=== PATIENT | female | born 1985 | race Caucasian/White ===

== ENCOUNTER 2016-07-08 17:59 | Outpatient (CLI) | payer OTHER ==
[~2016-07-08] VITALS: Ht 167.6 cm; Wt 114.0 kg
[~2016-07-08 17:59] MED LIST: CEPH500C PO; HYDR-3498 PO
[2016-07-08 18:19] VITALS: Ht 167.6 cm; Wt 114.0 kg
[2016-07-08 18:21] VITALS: BP 117/56; PULSE 100; RESP 20
[2016-07-08 19:08] LABS: ADD UMIC YES; URINE BILIRUBIN (Dip) NEGATIVE (NEGATIVE); URINE BLOOD (Dip) NEGATIVE (NEGATIVE); URINE GLUCOSE (Dip) NEGATIVE (NEGATIVE); URINE KETONES (Dip) TRACE (NEGATIVE); URINE LEUKOCYTE ESTERASE (Dip) NEGATIVE (NEGATIVE); URINE NITRITE (Dip) NEGATIVE (NEGATIVE); URINE TOTAL PROTEIN (Dip) NEGATIVE (NEGATIVE); URINE UROBILINOGEN (Dip) 0.2 E.U./dL (0.1-1.0)
[2016-07-08 19:16] LABS: BACTERIA,URINE FEW; SQUAMOUS EPITHELIAL CELL,UR MODERATE; URINE COLOR YELLOW (YELLOW)
[2016-07-08 19:17] LABS: URINE RBCS NONE SEEN /HPF (0)
--- NOTE | 2016-07-08 20:04 | RADRPT ---
PROCEDURE: US OB. CLINICAL INDICATION: . TECHNIQUE: Multiple sonographic images of the pelvis were obtained. The images were reviewed on a PACS workstation. COMPARISON: No prior studies are available for comparison. FINDINGS: The cervix is closed with a length of 3.7 cm. Technically difficult to see internal os, possibly sec ondary to shadowing from breech presentation. There is a single viable intrauterine gestation. Cardiac activity is present with 156 beats per min haider. There is a breech presentation. Estimated gestational age by last menstrual period is 26-weeks and 1 day. The placenta is posterior grade 1. There is no evidence for an abruption or placenta previa. There are no adnexal masses.. IMPRESSION: Cervix is closed with a length of 3.7 cm. RPTAT: UU Physician Vivian Date Time Electronically viewed and signed by Physician Vivian on 07/08/2016 20:03 RS/
[2016-07-08] MEDS ORDERED: TERBUTALINE 1 MG/ML INJ SC ONE (21:15)
--- NOTE | 2016-07-08 21:24 | QN ---
Documentation Comment Laborist 30 y.o. with an IUP at 26 weeks 1 day c/o back pain since yesterday. She says it used to be continuous but now it comes and goes.No VB. No leaking. PMHx: none. PSHx: C/S x 2 at term. NKDA. BP 117.56 T= 98.6. US: cx long closed and 3.7 cm long. No previa. U/A neg. NST: US's variable from q 3 to q 15 minutes and as the pthas a high BMI good contact is lost on occasion. heart tones are reactive and w/o decels. A: IUP at 26 weeks 1 day. UC's. False labor. P: Terbutaline 0.2 SQ x 1. Repeat in 20 min prn. P.O hydration. May D/C home if UC's desi. ERNIE MEREDITH MD Jul 08, 2016 21:24
== END 2016-07-08 23:20 | disposition home or self-care (01) ==
LOC: OBT 17:59 → L-D 18:00 → OBT 21:04
PROVIDERS: ATTEND Obstetrics & Gynecology
DX: O47.02 False labor before 37 completed weeks of gestation, second trimester (principal); Z3A.26 26 weeks gestation of pregnancy
CPT/HCPCS: 76817; 81001; 87086; 96372; J3105; Z7500; 81003; G0463

== ENCOUNTER 2016-08-20 18:48 | Outpatient (CLI) | payer OTHER ==
[~2016-08-20] VITALS: Ht 160 cm; Wt 113.9 kg
[2016-08-20 19:21] VITALS: Ht 160 cm; Wt 113.9 kg
[2016-08-20 19:55] LABS: ADD SCAN DIFF NO
[2016-08-20 19:57] LABS: ADD UMIC YES; URINE BILIRUBIN (Dip) NEGATIVE (NEGATIVE); URINE BLOOD (Dip) NEGATIVE (NEGATIVE); URINE COLOR LT. YELLOW (YELLOW); URINE GLUCOSE (Dip) NEGATIVE (NEGATIVE); URINE KETONES (Dip) NEGATIVE (NEGATIVE); URINE LEUKOCYTE ESTERASE (Dip) TRACE (NEGATIVE); URINE NITRITE (Dip) NEGATIVE (NEGATIVE); URINE TOTAL PROTEIN (Dip) NEGATIVE (NEGATIVE); URINE UROBILINOGEN (Dip) 1.0 E.U./dL (0.1-1.0)
[2016-08-20 20:04] LABS: BASOPHILS % 0.2 % (0.0-2.0); EOSINOPHILS # 0.1 10^3/ul (0.0-0.5); EOSINOPHILS % 0.5 % (0.0-7.0); HEMATOCRIT 33.7 % (37.0-47.0); LYMPHOCYTES # 3.3 10^3/ul (0.8-2.9); LYMPHOCYTES % 25.6 % (15.0-51.0); MEAN CORPUSCULAR HEMOGLOBIN 28.1 pg (29.0-33.0); MEAN CORPUSCULAR HGB CONC 32.6 g/dl (32.0-37.0); MEAN PLATELET VOLUME 10.4 fl (7.4-10.4); MONOCYTE # 0.6 10^3/ul (0.3-0.9); NEUTROPHIL # 8.7 10^3/ul (1.6-7.5); NEUTROPHILS % 68.2 % (39.0-77.0); PLATELET COUNT 337 10^3/UL (140-415); RED BLOOD COUNT 3.92 10^6/ul (4.20-5.40); RED CELL DISTRIBUTION WIDTH 13.2 % (11.5-14.5); WHITE BLOOD COUNT 12.8 10^3/ul (4.8-10.8)
[2016-08-20 20:23] LABS: BACTERIA,URINE FEW; SQUAMOUS EPITHELIAL CELL,UR FEW; URINE RBCS NONE SEEN /HPF (0)
[2016-08-20] MEDS ORDERED: LACTATED RINGER'S 1,000 ML IV ONE (23:00)
[2016-08-20] MEDS ORDERED: TERBUTALINE 1 MG/ML INJ SC ONE (23:00)
[2016-08-21] MEDS ORDERED: TERBUTALINE 1 MG/ML INJ SC ONE (01:00)
--- NOTE | 2016-08-21 02:55 | QN ---
Documentation Comment Laborist Dr Rodríguez's pt 31 y.o. A1 with an IUP at 32w 3d came in complaining of lower back pain since 08/19. No vaginal bleeding and no leaking. movement normal. PMHx: none. PSHx: x 2. D and C x1. NKDA. T=98.7 BP 118/60 NST: baseline 140-150 bpm with accels to 170 bpm. No decels. UC's initially q 2- 3 minutes once they were picked up. U/A negative. WBC 12.8. Hgb 11.0 Pt was given IV hydration and 2 doses of terbutaline and the UC's abated. A: IUP at 32w 3d. False labor. P: D/C IV and D/C home. F/U as scheduled with her doctor 08/22. ERNIE MEREDITH MD Aug 21, 2016 02:55
--- NOTE | 2016-08-21 03:03 | TRIAGE ---
OB Triage Datetime Report Generated by CPN: 08/21/2016 03:03 Datetime: 08/21/2016 02:00 Labor Evaluation Frequency: 0 Monitor Mode: External Duration (sec)2399: 0 Pattern: Normal: <= 5 Contractions in 10 Minutes Resting Tone [place]: Relaxed Contraction Comments: pt. denies feeling UC's. Heart Rate FHR Baseline Rate: 140 Monitor Mode: External US Variability: Moderate 6-25 bpm Accelerations: 15X15 Decelerations: None Category: Category I Datetime: 08/21/2016 01:00 Monitor Mode: External US Variability: Moderate 6-25 bpm Accelerations: 15X15 Decelerations: None Category: Category I Datetime: 08/21/2016 00:00 Stage of : OB Triage Labor Evaluation Frequency: 0 Monitor Mode: External Duration (sec)2399: 0 Pattern: Normal: <= 5 Contractions in 10 Minutes Resting Tone [place]: Relaxed Contraction Comments: uterine irritiability noted. Heart Rate FHR Baseline Rate: 145 Monitor Mode: External US Variability: Moderate 6-25 bpm Decelerations: None Category: Category I Datetime: 08/20/2016 23:00 Stage of : OB Triage Labor Evaluation Frequency: 2-6 Monitor Mode: External Duration (sec)2399: 50-70 Quality: Mild Pattern: Normal: <= 5 Contractions in 10 Minutes Resting Tone [place]: Relaxed Heart Rate FHR Baseline Rate: 140 Monitor Mode: External US Variability: Moderate 6-25 bpm Accelerations: 15X15 Decelerations: None Category: Category I Pain Assessment Pain Scale: 2 Pain Presence: Intermittent Pain Type: Ache Pain Location: Back Pain Goal: 0 Pain Relief Measures: Comfort Measures Datetime: 08/20/2016 22:00 Stage of : OB Triage Labor Evaluation Frequency: irregular Monitor Mode: External Duration (sec)2399: 50-80 Quality: Mild Pattern: Normal: <= 5 Contractions in 10 Minutes Resting Tone [place]: Relaxed Heart Rate FHR Baseline Rate: 150 Monitor Mode: External US Variability: Moderate 6-25 bpm Accelerations: 15X15 Decelerations: None Category: Category I Datetime: 08/20/2016 21:17 Stage of : OB Triage Datetime: 08/20/2016 21:02 Heart Rate FHR Baseline Rate: 140 Monitor Mode: External US Variability: Moderate 6-25 bpm Decelerations: Variable Category: Category II Comments: variable decel starting at 2101 lasting 90 seconds with a curt to 100bpm with areturn to baseline at 140bpm. Datetime: 08/20/2016 21:00 Stage of : OB Triage Labor Evaluation Frequency: x1 Monitor Mode: External Duration (sec)2399: 40 Quality: Mild Pattern: Normal: <= 5 Contractions in 10 Minutes Resting Tone [place]: Relaxed Heart Rate FHR Baseline Rate: 140 Monitor Mode: External US Variability: Moderate 6-25 bpm Accelerations: 15X15 Decelerations: None Category: Category I Datetime: 08/20/2016 20:00 Stage of : OB Triage Labor Evaluation Frequency: x1 Monitor Mode: External Duration (sec)2399: 40 Quality: Mild Pattern: Normal: <= 5 Contractions in 10 Minutes Resting Tone [place]: Relaxed Heart Rate FHR Baseline Rate: 135 Monitor Mode: External US Variability: Moderate 6-25 bpm Accelerations: 15X15 Decelerations: None Category: Category I Datetime: 08/20/2016 19:56 Assessment Type: Triage Datetime: 08/20/2016 19:10 Assessment Type: Admission Assessment Maternal Assessment Level of Consciousness: Fully Conscious DTR's/Clonus: DTRs 2+; No Clonus Headache: Denies Blurred Vision: No Respiratory Effort: Unlabored; Regular Rhythm; Equal Expansion Breath Sounds, Left: Clear and Equal Breath Sounds, Right: Clear and Equal Nausea/Vomiting: Denies RUQ Epigastric Pain: Denies Facial Edema: None Fall Risk Assessment History of Falling: (0) No Secondary Diagnosis: (0) No Ambulatory Aid: (0) Bedrest/Nurse Assist IV Therapy: (0) No Gait: (0) Normal/Bedrest/Immobile Mental Status: (0) Oriented to Own Ability Fall Score: 0 Fall Risk Score Definition: No Risk: No action required Datetime: 08/20/2016 18:53 Headache: Denies Datetime: 08/20/2016 18:51 Time of Arrival: 08/20/2016 18:25 EGA: 32.2 Arrived From: Home Movement: Present Contractions: Denies/Absent Rupture of Membranes: Denies Vaginal Discharge: Denies Recent Sexual Intercouse: Denies Abdominal Trauma: Not Applicable Datetime: 07/08/2016 23:05 Stage of : OB Triage Labor Evaluation Frequency: X4 Monitor Mode: External Duration (sec)2399: 50-60 Quality: Mild Pattern: Normal: <= 5 Contractions in 10 Minutes Resting Tone [place]: Relaxed Heart Rate FHR Baseline Rate: 150 Monitor Mode: External US FHR Baseline Changes: No Baseline Change Variability: Moderate 6-25 bpm Accelerations: 15X15 Decelerations: None Category: Category I Pain Assessment Pain Scale: 2 Pain Presence: Intermittent Pain Type: Cramping Pain Location: Abdomen; Back Pain Goal: 6 Pain Relief Measures: Comfort Measures Datetime: 07/08/2016 22:00 Stage of : OB Triage Labor Evaluation Frequency: IRREG Monitor Mode: External Duration (sec)2399: 50-60 Quality: Mild Pattern: Normal: <= 5 Contractions in 10 Minutes Resting Tone [place]: Relaxed Heart Rate FHR Baseline Rate: 150 Monitor Mode: External US FHR Baseline Changes: No Baseline Change Variability: Moderate 6-25 bpm Accelerations: 15X15 Decelerations: None Category: Category I Pain Assessment Pain Scale: 4 Pain Presence: Intermittent Pain Type: Cramping Pain Location: Abdomen; Back Pain Goal: 6 Pain Relief Measures: Comfort Measures Datetime: 07/08/2016 21:00 Stage of : OB Triage Labor Evaluation Frequency: IRREG Monitor Mode: External Duration (sec)2399: 50-60 Quality: Mild Pattern: Normal: <= 5 Contractions in 10 Minutes Resting Tone [place]: Relaxed Heart Rate FHR Baseline Rate: 150 Monitor Mode: External US FHR Baseline Changes: No Baseline Change Variability: Moderate 6-25 bpm Accelerations: 15X15 Decelerations: None Category: Category I Pain Assessment Pain Scale: 6 Pain Presence: Intermittent Pain Type: Cramping Pain Location: Abdomen; Back Pain Goal: 6 Pain Relief Measures: Comfort Measures Datetime: 07/08/2016 19:55 Stage of : OB Triage Labor Evaluation Frequency: IRREG Monitor Mode: External Duration (sec)2399: 50-60 Quality: Mild Pattern: Normal: <= 5 Contractions in 10 Minutes Resting Tone [place]: Relaxed Heart Rate FHR Baseline Rate: 150 Monitor Mode: External US FHR Baseline Changes: No Baseline Change Variability: Moderate 6-25 bpm Accelerations: 15X15 Decelerations: None Category: Category I Pain Assessment Pain Scale: 6 Pain Presence: Intermittent Pain Type: Cramping Pain Location: Abdomen; Back Pain Goal: 6 Pain Relief Measures: Comfort Measures Datetime: 07/08/2016 18:53 Labor Evaluation Frequency: IRREG Monitor Mode: External Duration (sec)2399: 50-60 Quality: Mild Pattern: Normal: <= 5 Contractions in 10 Minutes Resting Tone [place]: Relaxed Heart Rate FHR Baseline Rate: 150 Monitor Mode: External US FHR Baseline Changes: No Baseline Change Variability: Moderate 6-25 bpm Accelerations: 15X15 Decelerations: None Category: Category I Pain Assessment Pain Scale: 6 Pain Presence: Intermittent Pain Type: Cramping Pain Location: Abdomen; Back Pain Goal: 6 Datetime: 07/08/2016 18:07 Time of Arrival: 07/08/2016 17:54 EGA: 26.1 Arrived By: Ambulatory Arrived From: Home Chief Complaint: LOWER BACK PAIN SINCE 07/07/16 Movement: Present Contractions: Denies/Absent Vaginal Bleeding: None Patient Complaints: Back Pain Time Provider Notified: 07/08/2016 18:36 Provider Notified: TIM Initial Plan: EFM,CALL DR DUMONT Datetime: 07/08/2016 18:06 Maternal Assessment Level of Consciousness: Fully Conscious DTR's/Clonus: DTRs 2+; No Clonus Headache: Denies Blurred Vision: No Respiratory Effort: Unlabored; Regular Rhythm; Equal Expansion Breath Sounds, Left: Clear and Equal Breath Sounds, Right: Clear and Equal Nausea/Vomiting: Denies RUQ Epigastric Pain: Denies Facial Edema: None Temperature Route: Axillary Fall Risk Assessment History of Falling: (0) No Secondary Diagnosis: (0) No Ambulatory Aid: (0) Bedrest/Nurse Assist IV Therapy: (0) No Gait: (0) Normal/Bedrest/Immobile Mental Status: (0) Oriented to Own Ability Fall Score: 0 Fall Risk Score Definition: No Risk: No action required Datetime: 07/08/2016 18:03 Maternal Assessment Level of Consciousness: Fully Conscious DTR's/Clonus: DTRs 2+ Headache: Denies Blurred Vision: No Nausea/Vomiting: Denies RUQ Epigastric Pain: Denies Facial Edema: None Labor Evaluation Frequency: IRREG Monitor Mode: External Duration (sec)2399: 50 Quality: Mild Pattern: Normal: <= 5 Contractions in 10 Minutes Resting Tone [place]: Relaxed Heart Rate FHR Baseline Rate: 155 Monitor Mode: External US FHR Baseline Changes: No Baseline Change Variability: Minimal - Undetectable to <=5 bpm Decelerations: None Category: Category I Pain Assessment Pain Scale: 7 Pain Presence: Constant Pain Type: Pressure Pain Location: Back Pain Goal: 4 Vaginal Exam Membrane Status: Intact
[2016-08-21 03:05] VITALS: BP 118/60; PULSE 106
== END 2016-08-21 02:35 | disposition home or self-care (01) ==
LOC: OBT 18:48 → L-D 18:49 → OBT 08-21 02:35
PROVIDERS: ATTEND Obstetrics & Gynecology
DX: O47.03 False labor before 37 completed weeks of gestation, third trimester (principal); Z3A.32 32 weeks gestation of pregnancy
CPT/HCPCS: 36415; 81001; 85025; 87086; 96372; J3105; J7120; Z7500; 81003; G0463

== ENCOUNTER 2016-10-02 19:21 | Inpatient (IN) | payer OTHER ==
[~2016-10-02] VITALS: Ht 165.1 cm; Wt 116.9 kg
[2016-10-02 20:54] VITALS: BP 116/81; PULSE 100; RESP 18; Ht 165.1 cm; Wt 116.9 kg
[2016-10-02] MEDS ORDERED: LACTATED RINGER'S 1,000 ML IV ONE (21:00)
[2016-10-02] MEDS ORDERED: LACTATED RINGER'S 1,000 ML IV SCH (21:00)
--- NOTE | 2016-10-02 21:24 | RADRPT ---
PROCEDURE: OB ultrasound for biophysical profile CLINICAL INDICATION: Biophysical profile. . TECHNIQUE: Multiple sonographic images of the pelvis were obtained. Transabdominal view of the gr avid uterus are available for review. COMPARISON: 07/08/2016 FINDINGS: Single intrauterine gestation. Presentation: Cephalic. breathing movement = 2/2 tone = 2/2 motion = 2/2 RACHNA = 2/2 RACHNA = 14.6 cm heart rate: 144 beats per minute IMPRESSION: Single intrauterine gestation. Biophysical profile 01/23 RPTAT: AADD .Jarrett Donald MD, MD Date Time Electronically viewed and signed by .Jarrett Donald MD, on 10/02/2016 21:23 .B/
[2016-10-02 22:55] LABS: ADD SCAN DIFF NO
[2016-10-02 22:58] LABS: BASOPHILS % 0.1 % (0.0-2.0); EOSINOPHILS % 0.1 % (0.0-7.0); HEMATOCRIT 34.7 % (37.0-47.0); HEMOGLOBIN 11.4 g/dl (12.0-16.0); LYMPHOCYTES # 2.3 10^3/ul (0.8-2.9); LYMPHOCYTES % 16.6 % (15.0-51.0); MEAN CORPUSCULAR HEMOGLOBIN 27.9 pg (29.0-33.0); MEAN CORPUSCULAR HGB CONC 32.9 g/dl (32.0-37.0); MEAN CORPUSCULAR VOLUME 84.8 fl (82.0-101.0); MONOCYTE # 0.5 10^3/ul (0.3-0.9); MONOCYTES % 3.4 % (0.0-11.0); NEUTROPHIL # 11.2 10^3/ul (1.6-7.5); NEUTROPHILS % 79.4 % (39.0-77.0); PLATELET COUNT 268 10^3/UL (140-415); RED BLOOD COUNT 4.09 10^6/ul (4.20-5.40); RED CELL DISTRIBUTION WIDTH 14.1 % (11.5-14.5)
[2016-10-03] MEDS ORDERED: CEFAZOLIN 2 GM/50 ML (PMX) 50 ML IVPB ONE (00:29)
[2016-10-03] MEDS ORDERED: CARBOPROST 250 MCG INJ IM PRN ×2 (00:30→06:30)
[2016-10-03] MEDS ORDERED: MISOPROSTOL 200 MCG TAB PR PRN ×2 (00:30→06:30)
[2016-10-03] MEDS ORDERED: METHYLERGONOVINE 0.2 MG INJ IM PRN ×2 (00:30→06:30)
[2016-10-03] MEDS ORDERED: OXYTOCIN 30 UNITS/LR 500 ML IV PRN ×2 (00:30→06:30)
[2016-10-03] MEDS ORDERED: CEFAZOLIN 2 GM/50 ML (PMX) 50 ML IV SCH (00:30)
--- NOTE | 2016-10-03 00:33 | TRIAGE ---
OB Triage Datetime Report Generated by CPN: 10/03/2016 00:32 Datetime: 10/03/2016 00:29 Time of Arrival: 10/03/2016 19:20 EGA: 38.4 Arrived By: Wheelchair Arrived From: Home Chief Complaint: CONTRACTIONS, REPEAT SECTION Movement: Present Contractions: Regular Rupture of Membranes: Denies Vaginal Discharge: Denies Recent Sexual Intercouse: Denies Abdominal Trauma: Not Applicable Patient Complaints: Contractions Time Provider Notified: 10/03/2016 20:47 Provider Notified: TIM Initial Plan: BPP, IV HYDRATION, NPO, SVE Datetime: 10/02/2016 23:23 Monitor Mode: External US Datetime: 10/02/2016 20:45 Monitor Mode: External US Datetime: 10/02/2016 20:41 Vaginal Exam Dilatation (cms): 0.0 Effacement (%): 0 Station: -3 Exam By: CARY Vaginal Bleeding: None Cervix, Consistency: Moderate Cervix, Position: Midposition Presentation 'A': Unable to Assess Datetime: 10/02/2016 19:42 Assessment Type: Triage Maternal Assessment Level of Consciousness: Fully Conscious DTR's/Clonus: DTRs 2+; No Clonus Headache: Denies Blurred Vision: No Respiratory Effort: Unlabored; Regular Rhythm; Equal Expansion Breath Sounds, Left: Clear and Equal Breath Sounds, Right: Clear and Equal Nausea/Vomiting: Denies RUQ Epigastric Pain: Denies Lower Extremities Edema: Bilateral Lower Extremities Degree: 2+ Upper Extremities Edema: None Degree: None Facial Edema: None Fall Risk Assessment History of Falling: (0) No Secondary Diagnosis: (0) No Ambulatory Aid: (0) Bedrest/Nurse Assist IV Therapy: (0) No Gait: (0) Normal/Bedrest/Immobile Mental Status: (0) Oriented to Own Ability Fall Score: 0 Fall Risk Score Definition: No Risk: No action required Datetime: 08/21/2016 02:38 Labor Evaluation Frequency: 0 Monitor Mode: External Duration (sec)2399: 0 Pattern: Normal: <= 5 Contractions in 10 Minutes Resting Tone [place]: Relaxed Heart Rate FHR Baseline Rate: 135 Monitor Mode: External US Variability: Moderate 6-25 bpm Accelerations: 15X15 Decelerations: None Category: Category I Pain Assessment Pain Scale: 0 Pain Presence: None/Denies Pain Type: N/A Pain Goal: 0 Datetime: 08/21/2016 01:59 Vaginal Exam Dilatation (cms): 0.0 Effacement (%): 50 Station: -4 Exam By: CH Datetime: 08/20/2016 19:10 Fall Score: 0 Fall Risk Score Definition: No Risk: No action required Datetime: 08/20/2016 18:51 EGA: 32.2 Datetime: 07/08/2016 18:07 EGA: 26.1 Datetime: 07/08/2016 18:06 Fall Score: 0 Fall Risk Score Definition: No Risk: No action required
[2016-10-03 00:42] LABS: INR 0.98; PARTIAL THROMBOPLASTIN TIME 29.6 Sec (25.0-35.0)
[2016-10-03] MEDS ORDERED: OXYTOCIN 30 UNITS/LR 500 ML IV ONE (01:33)
[2016-10-03] MEDS ORDERED: EPHEDrine SULFATE 50 MG/5 ML SYG ONE (01:33)
[2016-10-03] MEDS ORDERED: OXYTOCIN 10 UNIT INJ ONE (01:33)
[2016-10-03] MEDS ORDERED: METOCLOPRAMIDE 10 MG INJ ONE (01:33)
[2016-10-03] MEDS ORDERED: ONDANSETRON 4 MG INJ ONE (01:33)
[2016-10-03] MEDS ORDERED: morphine SULFATE/PF (10 MG/10 ML) INJ ONE (01:33)
--- NOTE | 2016-10-03 02:45 | DELSUM ---
Delivery Summary A-C Datetime Report Generated by CPN: 10/03/2016 02:45 DELIVERY PERSONNEL Industrial Real Estate Agent: Ravi, Lashell MATERNAL INFORMATION Delivery Anesthesia: Spinal Medications in Delivery: SEE ANESTHESIA RECORDS Placenta Cultured: No Maternal Complications: Other Other Maternal Complications: R C/S X2 LABOR SUMMARY EDC: 10/13/2016 00:00 EDC: 10/13/2016 00:00 No. Babies in Womb: 1 Attempted: No Labor Anesthesia: Intrathecal LABOR INFORMATION Reason for Induction: Not Applicable Oxytocin: N/A Group B Beta Strep: Negative Antibiotics # of Doses: 1 Antibiotics Time of Last Dose: 10/03/2016 01:35 Steroids Given: None Reason Steroids Not Administered: Not Applicable MEMBRANES Membranes Rupture Method: Artificial Rupture of Membranes: 10/03/2016 02:07 Length of Rupture (hr): 0.03 Amniotic Fluid Color: Clear Amniotic Fluid Amount: Small STAGES OF LABOR Stage 3 hr: 0 Stage 3 min: 1 CSECTION DELIVERY Primary Indication: Repeat Elective CSection Urgency: Elective CSection Incidence: Repeat Labor: N/A Elective: N/A CSection Incision: Lower Uterine Transverse Sterilization Procedure: Cristobal BABY A INFORMATION Delivery Date/Time: 10/03/2016 02:09 Method of Delivery: Born in Route : No : N/A Forceps: N/A Vacuum Extraction: N/A Shoulder Dystocia : N/A SHOULDER DYSTOCIA BABY A Infant Delivery Date/Time: 10/03/2016 02:09 PRESENTATION/POSITION BABY A Presentation: Cephalic Cephalic Presentation: Vertex Breech Presentation: N/A PLACENTA INFORMATION BABY A Placenta Delivery Time : 10/03/2016 02:10 Placenta Method of Delivery: Manual Removal Placenta Status: Delivered SCORES BABY A Heart Rate 1 min: >100 bpm Resp Effort 1 min: Good Cry Reflex Irritability 1 min: Cough/Sneeze/Pulls Away Muscle Tone 1 min: Active Motion Color 1 min: Blue/Pale Resuscitation Effort 1 min: Tactile Stimulation SCORE 1 MIN: 8 Heart Rate 5 min: >100 bpm Resp Effort 5 min: Good Cry Reflex Irritability 5 min: Cough/Sneeze/Pulls Away Muscle Tone 5 min: Active Motion Color 5 min: Body [place], Extremit Blue Resuscitation Effort 5 min: Tactile Stimulation SCORE 5 MIN: 9 INFANT INFORMATION BABY A Gestational Age at Delivery: 38.4 Gestational Status: Early Term- 37- 38.6 Weeks Infant Outcome : Liveborn Condition : Stable Infant Sex: Male IDENTIFICATION/MEDS BABY A ID Band Number: [id number] ID Band Location: Right Leg; Left Arm Sensor Applied: Yes Sensor Number: [id number] Sensor Location : Cord Clamp Vitamin K Given : Not Given Erythromycin Given: Not Given WEIGHT/LENGTH BABY A Infant Birthweight (gm): 3420 Weight (lb): 7 Weight (oz): 9 Length (in): 18.50 Length (cm): 46.99 CORD INFORMATION BABY A No. Cord Vessels: 3 Nuchal Cord : Around Neck x1, Loose Cord Blood Taken: Yes Infant Suction: Mouth; Nose ASSESSMENT BABY A Complications: None Physical Findings at Delivery: Within Normal Limits Infant Respirations: Appears Normal [place] Maker/ALS Called : No Infant Care By: AVNI Transferred To: Remains with Mother
--- NOTE | 2016-10-03 03:23 | HP ---
Date/Time of Note Date/Time of Note DATE: 10/03/16 TIME: 03:16 OB - History Hx of Present Free Text/Dictation 31 y.o A1 at 38w3d cmae in c/o decrease movement and sharp pain on lower abdomen had unevenful course with x2 previous section, desire to have tubal sterilization EFM revealed 2-5 min uterine contractions pain 8/10 prepare repeat c/s and tubal sterilization after obtain proper consent. Chief Complaint: pelvic pain and dfm Estimated Due Date: Oct 13, 2016 : 4 Para: 2 Spontaneous : 1 Therapeutic : 0 Care: Good Care Ultrasounds: Normal mid trimester US Obstetrical Complications: None Medical Complications: None Past Family/Social History * Past Medical, Surgical, Family and Obstetric Histories reviewed from chart. Rubella: immune RPR/VDRL: Negative GBS Status: Negative HBsAG: Negative OB Admission Exam Vital Signs Vital Signs Vital Signs Date Time Temp Pulse Resp B/P Pulse Ox O2 Delivery O2 Flow Rate FiO2 10/02/16 20:54 98.1 100 18 116/81 Room Air Physical Exam HEENT: WNL Heart: Rhythm Normal Lungs: Clear, Equal Abdomen: WNL Extremities: Normal Reflexes: Normal Effacement: 0% Station: -3 Membranes: Intact Heart Rate: 140's Accelerations: Accelerations Present Decelerations: No Decelerations Varibility: Moderate Contractions on Admission: < 5 Minutes Apart Intensity: Moderate Last 72 hours Lab Results CBC & BMP 10/02/16 22:00 OB Assessment/Plan Reason for admission: section, other Other Assessment: [id number] with previous 2 c/s multiparity Plan: Section Other plan: repeat c/s and btl JOSEPH DUMONT MD Oct 03, 2016 03:23
[2016-10-03] MEDS ORDERED: OXYTOCIN 30 UNITS/LR 500 ML IV SCH (03:30)
--- NOTE | 2016-10-03 03:38 | DELSUM ---
Delivery Summary A-C Datetime Report Generated by CPN: 10/03/2016 03:37 DELIVERY PERSONNEL Hr Director: Ravi, Lashell MATERNAL INFORMATION Delivery Anesthesia: Spinal Medications in Delivery: SEE ANESTHESIA RECORDS Estimated Blood Loss (ml): 500 Placenta Cultured: No Maternal Complications: Other Other Maternal Complications: R C/S X2 LABOR SUMMARY EDC: 10/13/2016 00:00 EDC: 10/13/2016 00:00 No. Babies in Womb: 1 Attempted: No Labor Anesthesia: Intrathecal LABOR INFORMATION Reason for Induction: Not Applicable Oxytocin: N/A Group B Beta Strep: Negative Antibiotics # of Doses: 1 Antibiotics Time of Last Dose: 10/03/2016 01:35 Steroids Given: None Reason Steroids Not Administered: Not Applicable MEMBRANES Membranes Rupture Method: Artificial Rupture of Membranes: 10/03/2016 02:07 Length of Rupture (hr): 0.03 Amniotic Fluid Color: Clear Amniotic Fluid Amount: Small STAGES OF LABOR Stage 3 hr: 0 Stage 3 min: 1 CSECTION DELIVERY Primary Indication: Repeat Elective CSection Urgency: Elective CSection Incidence: Repeat Labor: N/A Elective: N/A CSection Incision: Lower Uterine Transverse Sterilization Procedure: Cristobal BABY A INFORMATION Infant Delivery Date/Time: 10/03/2016 02:09 Method of Delivery: Born in Route : No : N/A Forceps: N/A Vacuum Extraction: N/A Shoulder Dystocia : N/A SHOULDER DYSTOCIA BABY A Infant Delivery Date/Time: 10/03/2016 02:09 PRESENTATION/POSITION BABY A Presentation: Cephalic Cephalic Presentation: Vertex Breech Presentation: N/A PLACENTA INFORMATION BABY A Placenta Delivery Time : 10/03/2016 02:10 Placenta Method of Delivery: Manual Removal Placenta Status: Delivered SCORES BABY A Heart Rate 1 min: >100 bpm Resp Effort 1 min: Good Cry Reflex Irritability 1 min: Cough/Sneeze/Pulls Away Muscle Tone 1 min: Active Motion Color 1 min: Blue/Pale Resuscitation Effort 1 min: Tactile Stimulation SCORE 1 MIN: 8 Heart Rate 5 min: >100 bpm Resp Effort 5 min: Good Cry Reflex Irritability 5 min: Cough/Sneeze/Pulls Away Muscle Tone 5 min: Active Motion Color 5 min: Body [place], Extremit Blue Resuscitation Effort 5 min: Tactile Stimulation SCORE 5 MIN: 9 INFORMATION BABY A Gestational Age at Delivery: 38.4 Gestational Status: Early Term- 37- 38.6 Weeks Infant Outcome : Liveborn Condition : Stable Infant Sex: Male IDENTIFICATION/MEDS BABY A ID Band Number: [id number] ID Band Location: Right Leg; Left Arm Sensor Applied: Yes Sensor Number: [id number] Sensor Location : Cord Clamp Vitamin K Given : Not Given Erythromycin Given: Not Given WEIGHT/LENGTH BABY A Birthweight (gm): 3420 Infant Weight (lb): 7 Weight (oz): 9 Infant Length (in): 18.50 Infant Length (cm): 46.99 CORD INFORMATION BABY A No. Cord Vessels: 3 Nuchal Cord : Around Neck x1, Loose Cord Blood Taken: Yes Infant Suction: Mouth; Nose ASSESSMENT BABY A Infant Complications: None Physical Findings at Delivery: Within Normal Limits Infant Respirations: Appears Normal Director Emergency Department/ALS Called : No Infant Care By: AVNI Transferred To: Remains with Mother
--- NOTE | 2016-10-03 03:52 | OPR ---
DATE OF OPERATION: 10/03/2016 PREOPERATIVE DIAGNOSIS: , 38 weeks 3 days, with 2 previous sections and multipari ty, in early labor. POSTOPERATIVE DIAGNOSIS: , 38 weeks 3 days, with 2 previous sections and multipar ity, in early labor. Delivered normal male . OPERATION PERFORMED: Repeat low transverse section and bilateral tubal sterilization. ANESTHESIA: Spinal. ANESTHESIOLOGIST: Dr. Mcclain. SURGEON: John Rodríguez MD [employer] SUPERVISOR: Yolanda Clarke MD ESTIMATED BLOOD LOSS: Approximately 600 mL PROCEDURE: Under appropriate induction of spinal anesthesia, the patient was placed in the frog pos ition. Chang catheter was introduced into the bladder under sterile condition. Repositioned to sup ine. Abdominal wall was prepped and draped in usual aseptic manner. A transverse incision was made along the previous incisional scar. Scar tissue was excised. Incision was carried down through th e subcutaneous tissue to the anterior rectus fascia which was incised transversely in length of the incision. Fascial flap was created by blunt and sharp dissection of tendinous attachment, and perit sheth cavity was entered. There was no significant adhesion noted except on the left side. The toya dder peritoneum was pulled up to the left lateral aspect of the uterine serosa with band like struct ure. After the bladder blade was introduced, incision was made above the uterovesical reflection, a nd layer by layer, reached the amniotic membrane, ruptured, revealed clear amniotic fluid, and the n ormal male infant was born from the left occiput transverse position. Mouth and nose were cleaned, and cord was clamped and cut and handed to the respiratory care personnel for further care. Cord bl ood was obtained. The placenta was removed. Uterine cavity was explored after uterus was exteriori zed. Incision was closed using #1 chromic catgut on the first layer in continuous manner, second la verito using 0 chromic catgut, thus imbricating the first layer of closure. Bleeder controlled separat nery with the same suture. The tube on the right side was identified. Created a loop of tube at the avascular area of mesosalpinx. This loop of tube was doubly ligated with 0 plain, and the loop of tube was excised and the tubal lumen cauterized. The same procedure was done on the left fallopian tube, and no bleeder was noted. After the irrigation was done, all the blood clots were removed fro m the brandin and then sponge count was taken which was correct. The uterus was relocated into the abdominal cavity, and the uterine incisional site was checked and bleeder controlled, and a piece of Surgicel laid on it. The parietal peritoneum was closed using 0 chromic catgut in continuous saray r, muscle closed with 0 chromic catgut in continuous manner. Fascia closed with #1 Vicryl in contin uous manner in 2 segments after the piece of Surgicel was laid on top of the muscle. Subcutaneous t issue was irrigated with water. This layer was approximated with 2-0 plain in continuous manner. S kin closed with 3-0 Monocryl in subcuticular manner, and Steri-Strips were applied. A pressure dres sing was applied. Estimated blood loss approximately 600 mL. The patient withstood the procedure w ell and was sent to the recovery room in stable condition. Dictated By: JOHN MOSLEY/ADRIAN Conf#: [id number] DID#: [id number]
[2016-10-03 05:30] VITALS: BP 116/64; PULSE 87; RESP 19
[2016-10-03] MEDS ORDERED: OXYCODONE/ACETAMINOPHEN (5/325) TAB PO PRN (06:30)
[2016-10-03] MEDS ORDERED: ZOLPIDEM 5 MG TAB PO PRN (06:30)
[2016-10-03] MEDS ORDERED: LANOLIN 7 GM TUBE TOP PRN (06:30)
[2016-10-03] MEDS ORDERED: ONDANSETRON 4 MG INJ IV PRN ×2 (06:30→07:30)
[2016-10-03] MEDS ORDERED: DIPHENHYDRAMINE 50 MG INJ IV PRN ×2 (06:30→07:30)
[2016-10-03] MEDS: LACTATED RINGER'S 1,000 ML IV SCH ×3 (06:31→22:09)
[2016-10-03] MEDS ORDERED: NALOXONE (0.4 MG/ML) INJ IV PRN (07:30)
[2016-10-03] MEDS ORDERED: morphine SULFATE/PF (10 MG/10 ML) INJ SPINAL ONE (07:30)
[2016-10-03] MEDS ORDERED: morphine 2 MG INJ IV PRN ×2 (07:30)
[2016-10-03] MEDS ORDERED: HYDROmorphONE 1 MG/ML SYG IV PRN ×2 (07:30)
[2016-10-03] MEDS ORDERED: EPHEDrine SULFATE 50 MG/5 ML SYG IV PRN (07:30)
[2016-10-03 07:57] VITALS: BP 127/67; PULSE 95; RESP 18
[2016-10-03] MEDS: SENNA/DOCUSATE NA (8.6MG/50MG) TAB PO SCH ×2 (09:00→21:00)
[2016-10-03 16:00] VITALS: BP 127/75; PULSE 73; RESP 18
[2016-10-03 20:00] VITALS: BP 105/58; PULSE 95; RESP 20
[2016-10-03] MEDS: KETOROLAC 30 MG INJ IV PRN (21:01)
[2016-10-04 00:45] VITALS: BP 108/54; PULSE 92; RESP 20
[2016-10-04] MEDS: KETOROLAC 30 MG INJ IV PRN (03:19)
[2016-10-04 04:00] VITALS: BP 110/57; PULSE 107; RESP 20
[2016-10-04] MEDS: IBUPROFEN 600 MG TAB PO SCH ×3 (06:00→17:16)
[2016-10-04] MEDS: LACTATED RINGER'S 1,000 ML IV SCH ×3 (06:30→22:30)
--- NOTE | 2016-10-04 07:39 | PN ---
Date/Time of Note Date/Time of Note DATE: 10/04/16 TIME: 07:38 OB Subjective Subjective Subjective passing flatus OB Objective Objective Objective vss afebrile abdomen soft wound dry lochia min calf neg for tenderness OB Assessment/Plan Other Assessment: stable post rc/s btl Other plan: as ordered JOSEPH DUMONT MD Oct 04, 2016 07:39
[2016-10-04 08:07] VITALS: BP 95/56; PULSE 86; RESP 18
[2016-10-04] MEDS: SENNA/DOCUSATE NA (8.6MG/50MG) TAB PO SCH ×2 (08:15→21:00)
[2016-10-04 10:13] LABS: ADD SCAN DIFF NO
[2016-10-04 10:25] LABS: BASOPHILS % 0.2 % (0.0-2.0); EOSINOPHILS # 0.1 10^3/ul (0.0-0.5); EOSINOPHILS % 0.7 % (0.0-7.0); HEMOGLOBIN 9.6 g/dl (12.0-16.0); LYMPHOCYTES % 16.2 % (15.0-51.0); MEAN CORPUSCULAR HEMOGLOBIN 27.3 pg (29.0-33.0); MEAN CORPUSCULAR VOLUME 85.2 fl (82.0-101.0); MEAN PLATELET VOLUME 11.6 fl (7.4-10.4); MONOCYTE # 0.6 10^3/ul (0.3-0.9); NEUTROPHIL # 9.5 10^3/ul (1.6-7.5); NEUTROPHILS % 77.2 % (39.0-77.0); PLATELET COUNT 236 10^3/UL (140-415); RED BLOOD COUNT 3.52 10^6/ul (4.20-5.40); RED CELL DISTRIBUTION WIDTH 14.6 % (11.5-14.5); WHITE BLOOD COUNT 12.3 10^3/ul (4.8-10.8)
[2016-10-04 16:00] VITALS: BP 100/53; PULSE 93; RESP 18
[2016-10-04 19:45] VITALS: BP 112/59; PULSE 100; RESP 19
[2016-10-04] MEDS: OXYCODONE/ACETAMINOPHEN (5/325) TAB PO PRN (23:09)
[2016-10-05] MEDS: IBUPROFEN 600 MG TAB PO SCH ×4 (00:10→18:12)
[2016-10-05 04:00] VITALS: BP 120/70; PULSE 98; RESP 18
[2016-10-05 08:00] VITALS: BP 109/67; PULSE 95; RESP 18
[2016-10-05] MEDS: SENNA/DOCUSATE NA (8.6MG/50MG) TAB PO SCH ×2 (09:00→21:00)
--- NOTE | 2016-10-05 09:43 | PN ---
Date/Time of Note Date/Time of Note DATE: 10/05/16 TIME: 09:41 OB Subjective Subjective Subjective tiered OB Objective Objective Objective vss afebrile abdomen soft lochia min calf no tenderness ext + edema OB Assessment/Plan Other Assessment: stable Other plan: as ordered JOSEPH DUMONT MD Oct 05, 2016 09:43
[2016-10-05 16:00] VITALS: BP 115/65; PULSE 102; RESP 18
[2016-10-05 20:00] VITALS: BP 122/73; PULSE 96; RESP 19
[2016-10-05] MEDS: OXYCODONE/ACETAMINOPHEN (5/325) TAB PO PRN (21:04)
[2016-10-06] MEDS: IBUPROFEN 600 MG TAB PO SCH ×3 (00:10→11:41)
[2016-10-06 03:45] VITALS: BP 103/76; PULSE 90; RESP 17
[2016-10-06 08:00] VITALS: BP 111/62; PULSE 82; RESP 18
[2016-10-06] MEDS: SENNA/DOCUSATE NA (8.6MG/50MG) TAB PO SCH (08:35)
[2016-10-06] MEDS ORDERED: DIPHTH/TET/ACEL PERTUSS (ADULT) 0.5 ML VIAL IM* ONE (09:00)
--- NOTE | 2016-10-06 14:17 | PN ---
Date/Time of Note Date/Time of Note DATE: 10/06/16 TIME: 14:14 OB Subjective Subjective Subjective no c/o had b,m OB Objective Objective Objective vss afebrile \abdomen soft wound healing ok lochia min calf neg OB Assessment/Plan Other Assessment: satisfactory Other plan: d/shome in am JOSEPH DUMONT MD Oct 06, 2016 14:17
--- NOTE | 2016-10-06 14:19 | DS ---
Date/Time of Note Date/Time of Note DATE: 10/06/16 TIME: 14:18 Obstetrical Discharge Record Final Diagnosis Final Diagnosis: Term delivered Vaginal Delivery Obstetrical Delivery: Bilateral Tubal Ligation Section Section: Repeat Complications Augmentation: No Induction: No Condition on Discharge Physical Assessment Last Vitals: vss afebrile Voiding: Yes Bowel Movement: Yes Breast: Soft, non-tender Fundus: Firm Abdomen and Incision: soft wound healing Patient Condition: Stable JOSEPH DUMONT MD Oct 06, 2016 14:19
== END 2016-10-06 15:45 | disposition home or self-care (01) | DRG 766 ==
LOC: L-D 19:21 → OBT 19:21 → L-D 10-03 00:13 → OBT 10-03 00:13 → L-D 10-03 04:49 → PP1 10-03 05:43
PROVIDERS: ADMIT Obstetrics & Gynecology; ATTEND Obstetrics & Gynecology
PROC: 0UB70ZZ Excision of Bilateral Fallopian Tubes, Open Approach (ICD-10-PCS; 2016-10-03)
PROC: 10D00Z1 Extraction of Products of Conception, Low, Open Approach (ICD-10-PCS; principal; 2016-10-03 02:00)
DX: O36.8130 Decreased fetal movements, third trimester, not applicable or unspecified (principal); O34.211 Maternal care for low transverse scar from previous cesarean delivery; Z3A.38 38 weeks gestation of pregnancy; Z37.0 Single live birth; Z30.2 Encounter for sterilization
CPT/HCPCS: 36415; 76818; 85025; 85610; 85730; 86592; 86850; 86900; 86901; 87340; 88302; 90715; 96360; 96361; 99464; G0463; J0690; J1885; J2274; J2405; J2590; J2765; J7120